=== PATIENT | male | born 2000 | race Caucasian/White ===

== ENCOUNTER 2024-11-28 19:15 | Emergency (ER) | payer BC ==
[2024-11-28] MEDS: Ketorolac 15 MG/ML SDV IVPUSH ONE (19:37)
[2024-11-28] MEDS: Sodium Chloride 0.9% 10 ML Syringe FLUSH PRN (19:38)
[2024-11-28 19:47] LABS: BASOPHILS ABSOLUTE AUTO 0.1 K/mm3 (0.0-0.2); BASOPHILS PERCENT AUTO 0.8 % (0.0-1.0); EOSINOPHILS ABSOLUTE AUTO 0.1 K/mm3 (0.0-0.4); EOSINOPHILS PERCENT AUTO 1.5 % (0.0-6.0); HEMATOCRIT 40.8 % (42.0-52.0); IMMATURE GRAN ABSOLUTE AUTO 0.01 K/mm3 (0.00-0.05); IMMATURE GRAN PERCENT AUTO 0.1 % (0.0-0.4); LYMPHOCYTES ABSOLUTE AUTO 2.3 K/mm3 (1.0-4.8); LYMPHOCYTES PERCENT AUTO 31.8 % (24.0-44.0); MEAN CORPUSCULAR HEMOGLOBIN 28.9 pg (28.0-32.0); MEAN CORPUSCULAR HGB CONC 34.3 g/dl (32.0-36.0); MEAN CORPUSCULAR VOLUME 84.3 fl (83.0-99.0); MEAN PLATELET VOLUME 10.6 fl (9.4-12.4); MONOCYTES ABSOLUTE AUTO 0.6 K/mm3 (0.0-0.8); MONOCYTES PERCENT AUTO 7.7 % (0.0-8.0); NEUTROPHILS ABSOLUTE AUTO 4.2 K/mm3 (1.8-7.7); NEUTROPHILS PERCENT AUTO 58.1 % (41.0-71.0); PLATELET COUNT,PLT 249 K/mm3 (150-400); RED BLOOD CELL COUNT 4.84 M/mm3 (4.52-5.90); WHITE BLOOD CELL COUNT,WBC 7.17 K/mm3 (3.9-11.3)
[2024-11-28 19:59] LABS: A/G RATIO 1.6 (1-2); ALANINE AMINOTRANSFERASE,ALT 29 U/L (16-63); ALBUMIN 4.3 g/dl (3.4-5.0); ALKALINE PHOSPHATASE 115 U/L (46-116); ANION GAP 13.9 (5-15); ASPARTATE AMNIOTRANSFERASE,AST 22 U/L (15-37); BILIRUBIN TOTAL 0.7 mg/dL (0.2-1.0); BLOOD UREA NITROGEN,BUN 25 mg/dL (7-18); CALCIUM 8.7 mg/dL (8.5-10.1); CARBON DIOXIDE,CO2 27 mEq/L (21-32); CHLORIDE,CL 105 mEq/L (98-107); EST CRCL DRUG DOSING (CG) 100.39 mL/min; ESTIMATED GFR 108 mL/min (>60); GLUCOSE RANDOM 74 mg/dL (70-99); LIPASE 65 U/L (16-77); POTASSIUM,K 3.9 mEq/L (3.5-5.1); SODIUM,NA 142 mEq/L (136-145)
[2024-11-28 20:01] LABS: TROPONIN I HIGH SENSITIVITY < 4 pg/mL (<=76)
[2024-11-28] MEDS: Famotidine 20 MG Tab PO ONE (20:47)
[2024-11-28] MEDS: Alum Hydrox/Mag Hydrox/Simeth 30 ML, Lidocaine 2% 15 ML PO ONE (20:47)
== END 2024-11-28 21:00 | disposition home or self-care (01) ==
LOC: JD.ED 19:15
DX: R07.9 Chest pain, unspecified (principal); F17.210 Nicotine dependence, cigarettes, uncomplicated; Z79.899 Other long term (current) drug therapy
CPT/HCPCS: 36415; 71045; 71045-26; 80053; 83690; 84484; 85025; 93010; 96374; 99284; 99285-25; A9270-GY; J1885

== ENCOUNTER 2025-02-07 21:45 | Emergency (ER) | payer BC ==
[2025-02-07] MEDS: Ketorolac 10 MG Tab PO ONE (23:32)
== END 2025-02-07 23:35 | disposition home or self-care (01) ==
LOC: JD.ED 21:45
DX: M54.6 Pain in thoracic spine (principal); Z86.16 Personal history of COVID-19; Z79.899 Other long term (current) drug therapy
CPT/HCPCS: 72072; 99283; A9270

== ENCOUNTER 2025-07-09 20:16 | Emergency (ER) | payer BC | END 2025-07-09 21:49 | disposition home or self-care (01) | LOC: JD.ED 20:16 | DX: R05.9 Cough, unspecified (principal); R06.02 Shortness of breath; Z79.899 Other long term (current) drug therapy; Z86.16 Personal history of COVID-19 | CPT/HCPCS: 71045; 71045-26; 87428-QW; 99285 ==